=== PATIENT | male | born 1995 | race Caucasian/White ===

== ENCOUNTER 2020-01-02 11:35 | Emergency (ER) | payer SELFPAY ==
--- NOTE | ~2020-01-02 | CT_ITS ---
EXAMINATION: CT abdomen pelvis wo con DATE: 01/02/2020 13:51 INDICATION: Left flank pain. TECHNIQUE: Computed tomography (CT) of the abdomen and pelvis was performed without intravenous contr ast. Automated exposure control and iterative reconstruction technique were employed. The dose-length product was 729.17 mGy-cm. COMPARISON: None. FINDINGS: The visualized portions of the lung bases are clear without pneumonia or pleural effusion. The heart size is normal. No pericardial effusion. The liver, gallbladder, spleen, pancreas, adrenal glands, and right kidney are normal. There is mild left hydronephrosis and hydroureter. There is a le ft internal ureteral stent in expected position. There is a 3 mm stone in proximal left ureter. There are no dilated loops of bowel. The appendix is normal. There are no pathologically enlarged lymph no cheryl. There is no free intraperitoneal fluid. There are chronic bilateral L5 pars defects. There is mi ld thoracolumbar spondylosis. IMPRESSION: 1. 3 mm stone in proximal left ureter. Mild left hydronephrosis and hydroureter with left internal ur eteral stent in expected position. Reviewed, dictated and finalized at location A. [facility] [employer] IMPRESSION: 1. 3 mm stone in proximal left ureter. Mild left hydronephrosis and hydroureter with left internal ureteral stent in expected position.
[2020-01-02 12:01] VITALS: BP 143/97; PULSE 69; RESP 17; TEMP 36.4; O2SAT 99
[2020-01-02 12:11] LABS: Basophils Percent Auto 0.6 % (0.2-1.2); Eosinophils Absolute Auto 0.1 K/mm3 (0-0.3); Eosinophils Percent Auto 2.1 % (0-4.4); Hematocrit 44.2 % (42.0-52.0); Hemoglobin 14.9 g/dL (14.0-18.0); Immature Granulocyte Absolute 0.02 K/mm3 (0.00-0.031); Immature Granulocyte Percent A 0.3 % (0-0.5); Lymphocytes Absolute Auto 1.32 K/mm3 (0.9-3.2); Lymphocytes Percent Auto 19.6 % (18.3-44.2); Mean Corpuscular HGB Conc 33.7 g/dl (32-36); Mean Corpuscular Volume 92.1 fl (80-100); Mean Platelet Volume 10.6 fl (7.4-10.4); Monocytes Absolute Auto 0.7 K/mm3 (0.1-0.6); Monocytes Percent Auto 10.7 % (2.6-8.5); Neutrophils Absolute Auto 4.5 K/mm3 (1.3-6.7); Neutrophils Percent Auto 66.7 % (45.5-73.1); Platelet Count Result 231 k/mm3 (150-375); White Blood Count 6.7 K/mm3 (4.5-10.0)
--- NOTE | 2020-01-02 12:22 | ED.ABDPAIN ---
HPI - Abdominal Pain General Chief Complaint: Abdominal Pain Stated Complaint: left kidney stone Time Seen by Provider: 01/02/20 12:14 Source: patient and RN notes reviewed Mode of arrival: ambulatory Limitations: no limitations History of Present Illness HPI narrative: Pt is a 24 y/o male who presents to the ED with c/o worsening lt flank pain starting roughly 1-2 weeks ago. He notes that he was diagnosed with a lt kidney stone roughly 2 months ago, and states that he later had a lt ureteral stent placed. Pt notes that he was scheduled to have the stent removed, but states that he was never able to due to an insurance complication. He notes that he has had increasing pain in his lt lower back for the past 1-2 weeks. Pt states that his pain has begun to radiate into his LLQ and lt testicle. He reports nausea, vomiting, dysuria, hematuria, subjective fever, and chills accompanying his pain. Pt currently rates his pain at 8/10. MD elicited complaint: flank pain Pertinent past history: kidney stones Onset (ago): week(s) (1-2) Pain Consistency: other (worsening) Location: L flank Pain scale (0-10): 8 Radiation: LLQ and other (lt testicle) Context: confirms recent surgery/procedure (recent lt ureteral stent placement) Associated symptoms: nausea, vomiting, fever (subjective), chills, dysuria and hematuria Related Data Allergies Allergy/AdvReac Type Severity Reaction Status Date / Time No Known Allergies Allergy Verified 01/02/20 12:45 Review of Systems Review of Systems: All systems reviewed & are unremarkable except as noted in HPI and below Constitutional: Constitutional: Reports chills, Reports fever(s) (subjective), Denies headache(s) and Denies weakness Eyes: Eyes: Denies blurry vision ENT: Denies headache(s) and Denies neck pain Cardiovascular: Cardiovascular: Denies chest pain and Denies dyspnea Respiratory: Respiratory: Denies cough and Denies dyspnea Gastrointestinal: Gastrointestinal: Denies diarrhea, Reports nausea and Reports vomiting Genitourinary: Genitourinary: Reports hematuria, Reports dysuria and Reports flank pain (lt flank pain radiating into LLQ and lt testicle) Musculoskeletal: Musculoskeletal: Denies neck pain Neurologic: Denies headache(s) and Denies weakness FOR[facility]LY [facility], [facility] Past Medical History Medical History Left renal stone Surgical History Surgical History S/P ureteral stent placement Social History Social History Smoking status: Never smoker Gender identity (if verbalized by the patient): Male Exam Const: General: well developed and other (anxious appearing) Orientation/consciousness: oriented to person, oriented to place, oriented to time and patient oriented x3 HENMT: Head: normocephalic Ears: external ears normal General nose exam: Normal external nose present Resp: Effort & Inspection: normal respiratory effort Auscultation: clear to auscultation bilaterally Cardio: Rate: regular rate Rhythm: regular rhythm GI: GI Palp: Yes abdominal tenderness (lt flank tenderness) and Yes Soft to palpation Skin: General skin exam: normal color and turgor normal Neuro: General: oriented to person, oriented to place, oriented to time and patient oriented x3 Cognition (Neuro): normal cognition Extrem: General: normal to inspection, full ROM and no pedal edema Psych: Appearance: grossly normal Mental Status: mental status grossly normal Affect: normal affect Course Reevaluation(s) Reevaluation #1: Patient states that he has [employer] rather than of [place]. Will refer patient to Dr. De Jesus. Date: 01/02/20 Time: 15:15 Consultations Consultation #1: Discussed case with urologist, Dr. De Jesus. Recommended to have the pt follow-up with urologist that is covered by his insurance plan. Date: 01/02/20 Time: 14:25 Vital Signs Vital signs: Vital Signs
[2020-01-02 12:24] LABS: Blood Urea Nitrogen 15 mg/dL (9-20); Calcium 9.4 mg/dL (8.4-10.2); Carbon Dioxide 20 mmol/L (22-30); Chloride 107 mmol/L (98-107); Estimated CRCL calculation 135 ml/min; Estimated Glomerular Filt Rate > 60; Glucose 109 mg/dL (75-110); Potassium 4.6 mmol/L (3.4-5.0); Sodium 140 mmol/L (137-145)
[2020-01-02] MEDS: METOCLOPRAMIDE HCL INJ 10 MG/2 ML VIAL IV PUSH (12:46)
[2020-01-02] MEDS: SODIUM CHLORIDE 0.9% IV 1,000 ML 999 ML IV CONT (12:46)
[2020-01-02] MEDS: KETOROLAC 30 MG/ML VIAL (*BKC) IV PUSH (12:46)
[2020-01-02 14:26] LABS: Add Urine Microscopic? YES; Appearance Urine Cloudy (Clear); Bilirubin Urine Negative (Negative); Blood Urine 3+ (Negative); Color Urine Yellow (Yellow); Glucose Urine UA Negative (Negative); Ketones Urine Negative (Negative); Leukocyte Esterase Ur Trace LEU/UL (Negative); Mucus Urine Rare /lpf; Nitrate Urine Negative (Negative); Protein Urine 2+ mg/dL (Negative); RBC Urine >75 /hpf (0-2); Specific Grav Ur 1.019 (1.001-1.035); Squamous Epithelial Cell Urine Occasional /hpf (Few); Urobilinogen Urine Negative mg/dL (<2.0); WBC Urine 16-20 /hpf
--- NOTE | 2020-01-02 15:34 | PCCCNOTE ---
Spoke with patient at bedside regarding which facility/physician are in the network for his insurance. After investigating [facility] and learning that policy was termed 08/2016, patient states he nirmal [employer] insurance but does not know his ID number or know where his card is. Advised pt to call [employer] once he knows his insurance information to determine what is in his network and plan.
[2020-01-02 15:58] VITALS: BP 132/70; PULSE 80; RESP 20; TEMP 36.7; O2SAT 99
--- NOTE | 2020-01-06 17:25 | PC.NURSE ---
LATE ENTRY This note is being entered to document information to the patient's record. The following information was omitted on [01/02/2020], by [Juan Newman] NS STARTED AT 1246 ENDED 1335. JUAN Newman
== END 2020-01-02 16:00 | disposition home or self-care (01) ==
PROVIDERS: Emergency Medicine; Emergency Provider Emergency Medicine; PCP Internal Medicine
DX: N13.2 Hydronephrosis with renal and ureteral calculous obstruction (principal); Z87.442 Personal history of urinary calculi
CPT/HCPCS: 36415; 74176; 80048; 81001; 85025; 87086; 96361; 96374; 96375; 99284; J1885; J2765; J7030

== ENCOUNTER 2021-03-20 17:42 | Emergency (ER) | payer SELFPAY ==
[2021-03-20 17:53] VITALS: BP 134/101; PULSE 103; RESP 16; TEMP 36.8; O2SAT 96
[2021-03-20 18:07] LABS: Basophils Absolute Auto 0.1 K/mm3 (0.0-0.1); Basophils Percent Auto 0.4 % (0.2-1.2); Eosinophils Absolute Auto 0.1 K/mm3 (0-0.3); Eosinophils Percent Auto 0.4 % (0-4.4); Hematocrit 49.3 % (42.0-52.0); Hemoglobin 17.2 g/dL (14.0-18.0); Immature Granulocyte Absolute 0.05 K/mm3 (0.00-0.031); Immature Granulocyte Percent A 0.4 % (0-0.5); Lymphocytes Absolute Auto 1.86 K/mm3 (0.9-3.2); Lymphocytes Percent Auto 16.2 % (18.3-44.2); Mean Corpuscular HGB Conc 34.9 g/dl (32-36); Mean Corpuscular Hemoglobin 30.7 pg (26-34); Mean Platelet Volume 10.1 fl (7.4-10.4); Monocytes Absolute Auto 1.5 K/mm3 (0.1-0.6); Monocytes Percent Auto 13.2 % (2.6-8.5); Neutrophils Percent Auto 69.4 % (45.5-73.1); Platelet Count Result 301 k/mm3 (150-375); White Blood Count 11.5 K/mm3 (4.5-10.0)
[2021-03-20 18:18] LABS: Alanine Aminotransferase 14 U/L (4-50); Albumin Level 4.9 g/dL (3.5-5.1); Alkaline Phosphatase 73 U/L (38-126); Anion Gap 8 mmol/L (8-16); Aspartate Amino Transferase 20 U/L (17-59); Bilirubin,Total 0.8 mg/dL (0.2-1.3); Blood Urea Nitrogen 17 mg/dL (9-20); Calcium 9.4 mg/dL (8.4-10.2); Carbon Dioxide 35 mmol/L (22-30); Chloride 90 mmol/L (98-107); Estimated CRCL calculation 123 ml/min; Estimated Glomerular Filt Rate > 60; Glucose 101 mg/dL (75-110); Lipase 58 U/L (23-300); Potassium 3.5 mmol/L (3.4-5.0); Sodium 133 mmol/L (137-145)
== END 2021-03-20 22:11 | disposition left against medical advice (07) ==
LOC: ANHED 22:07
PROVIDERS: Emergency Provider Emergency Medicine
DX: R11.2 Nausea with vomiting, unspecified (principal)
CPT/HCPCS: 36415; 80053; 83690; 85025; 99199